=== PATIENT | female | born 1970 | race Caucasian/White ===

== ENCOUNTER → 2018-01-01 07:45 | Outpatient (CLI) | payer OTHER, SELFPAY ==
--- NOTE | 2018-01-01 | DI.MG.S_ITS ---
BILATERAL DIGITAL SCREENING MAMMOGRAM 3D/2D WITH CAD POST LUMPECTOMY: 01/01/2018 CLINICAL: Routine screening. Personal history of left breast cancer. Comparison is made to exams dated: 12/31/2016 mammogram - [facility], 06/11/2015 mammogram, and 12/11/2014 mammogram - [facility]. There are scattered fibroglandular elements in both breasts. Current study was also evaluated with a Computer Aided Detection (CAD) system. There are stable benign post operative findings in the left breast. No significant masses, calcifications, or other findings are seen in either breast. There has been no significant interval change. IMPRESSION: There is no mammographic evidence of malignancy. A 1 year screening mammogram is recommended. This exam was interpreted at Station ID: [id number]. NOTE: For mammograms, a report in lay terms will be sent to the patient. Approximately 15% of breast malignancies will not be visualized mammographically. In the management of a palpable breast mass, a negative mammogram must not discourage biopsy of a clinically suspicious lesion. Electronically Signed By: Jon hinds/jef:01/01/2018 15:30:42 letter sent: Normal Exam ACR BI-RADS Category 2: Benign Finding(s) 3342F
== END ==
PROVIDERS: PCP Nurse Practitioner Family; Visit Provider Nurse Practitioner Family
DX: Z12.31 Encounter for screening mammogram for malignant neoplasm of breast (principal); Z85.3 Personal history of malignant neoplasm of breast
CPT/HCPCS: 77063; 77067

== ENCOUNTER → 2019-02-08 17:16 | Outpatient (CLI) | payer OTHER, MEDICAID, SELFPAY ==
--- NOTE | 2019-02-08 | DI.MG.S_ITS ---
BILATERAL DIGITAL SCREENING MAMMOGRAM 3D/2D WITH CAD: 02/08/2019 CLINICAL: Routine screening. Personal history of left breast cancer. Comparison is made to exams dated: 01/01/2018 mammogram, 12/31/2016 mammogram - [facility], and 06/11/2015 mammogram - [facility]. There are scattered fibroglandular elements in both breasts. Current study was also evaluated with a Computer Aided Detection (CAD) system. There are benign calcifications in the right breast. There also are stable benign calcifications in the left breast. Additionally, there are benign post operative findings in the left breast. No significant masses, calcifications, or other findings are seen in either breast. There has been no significant interval change. IMPRESSION: There is no mammographic evidence of malignancy. A 1 year screening mammogram is recommended. This exam was interpreted at Station ID: [id number]. NOTE: For mammograms, a report in lay terms will be sent to the patient. Approximately 15% of breast malignancies will not be visualized mammographically. In the management of a palpable breast mass, a negative mammogram must not discourage biopsy of a clinically suspicious lesion. Electronically Signed By: Eliot edgar/jef:02/14/2019 11:48:55 letter sent: Normal Exam ACR BI-RADS Category 2: Benign Finding(s) 3342F
== END ==
PROVIDERS: PCP Nurse Practitioner Family; Visit Provider Nurse Practitioner Family
DX: Z12.31 Encounter for screening mammogram for malignant neoplasm of breast (principal); Z85.3 Personal history of malignant neoplasm of breast
CPT/HCPCS: 77063; 77067

== ENCOUNTER → 2020-03-09 17:21 | Outpatient (CLI) | payer OTHER, MEDICAID, SELFPAY ==
--- NOTE | 2020-03-09 17:23 | DI.MG.S_ITS ---
BILATERAL DIGITAL SCREENING MAMMOGRAM 3D/2D WITH CAD: 03/09/2020 CLINICAL: Routine screening. Personal history of left breast cancer. Comparison is made to exams dated: 02/08/2019 mammogram, 01/01/2018 mammogram, and 12/31/2016 mammogram - [facility]. There are scattered fibroglandular elements in both breasts. Current study was also evaluated with a Computer Aided Detection (CAD) system. There are benign calcifications in the right breast. There also are stable benign calcifications in the left breast. Additionally, there are benign post operative findings in the left breast. No significant masses, calcifications, or other findings are seen in either breast. There has been no significant interval change. IMPRESSION: BENIGN There is no mammographic evidence of malignancy. A 1 year screening mammogram is recommended. This exam was interpreted at Station ID: [id number]. NOTE: For mammograms, a report in lay terms will be sent to the patient. Approximately 15% of breast malignancies will not be visualized mammographically. In the management of a palpable breast mass, a negative mammogram must not discourage biopsy of a clinically suspicious lesion. Electronically Signed By: Eliot edgar/jef:03/12/2020 07:02:09 letter sent: Normal Exam ACR BI-RADS Category 2: Benign Finding(s) 3342F
== END ==
PROVIDERS: PCP Nurse Practitioner Family; Referring Provider Internal Medicine; Visit Provider Internal Medicine
DX: Z12.31 Encounter for screening mammogram for malignant neoplasm of breast (principal); Z85.3 Personal history of malignant neoplasm of breast
CPT/HCPCS: 77063; 77067

== ENCOUNTER → 2020-05-16 09:57 | Outpatient (CLI) | payer OTHER, MEDICAID, SELFPAY ==
[2020-05-16 11:03] LABS: COVID19 -Nasal RAPID Negative (Negative)
== END ==
PROVIDERS: PCP Nurse Practitioner Family; Visit Provider Physician Assistant
DX: Z01.812 Encounter for preprocedural laboratory examination (principal); Z20.822 Contact with and (suspected) exposure to COVID-19
CPT/HCPCS: 87635

== ENCOUNTER 2020-05-18 12:00 | Day surgery (SDC) | payer OTHER, MEDICAID, SELFPAY ==
--- NOTE | 2020-05-18 | PATH_ITS ---
[facility] Accession Number: [id number] . 01 Material submitted: . PART A: cecum - CECAL POLYP 3MM PART B: colon - TRANSVERSE COLON POLYP 2MM PART C: colon - DESCENDING COLON POLYP 2MM . 02 Diagnosis: A. Cecal Polyp 3 mm: Tubular adenoma. . B. Transverse Colon Polyp 2 mm: Portions of tubular adenoma x3. . C. Descending Colon Polyp 2 mm: Portion of hyperplastic polyp x1. Superficial portion of colorectal mucosa x1 with a benign lymphoid aggregate. MRV 05/24/2020 1312 Local . 02 Electronically signed: . Sarina Colon MD, Pathologist NPI- [id number] . 01 Gross description: . Part A: CECAL POLYP 3MM: Received in formalin is 1 fragment(s) of moody, soft tissue measuring 0.3 x 0.3 x 0.2 cm submitted entirely in 1 cassette(s) Part B: TRANSVERSE COLON POLYP 2MM: Received in formalin are 3 fragment(s) of moody, soft tissue measuring 0.1 x 0.1 x 0.1 cm to 0.4 x 0.2 x 0.2 cm submitted entirely in 1 cassette(s) Part C: DESCENDING COLON POLYP 2MM: Received in formalin are 2 fragment(s) of moody, soft tissue measuring 0.2 x 0.2 x 0.2 cm to 0.3 x 0.3 x 0.2 cm submitted entirely in 1 cassette(s) /KAMILA 05/22/20202034 Local . 02 Pathologist provided ICD-10: Z12.11, K63.5 . 02 CPT . 037543, 587956, 251046 Performed at: [address] [facility] [address], [place], [place] [id number] MD Jon Ruiz MD Phone: [phone] Performed at: 02 [facility] [address] [address] [place] [address] [place], [place] [id number] MD Nadya Guerrero MD Phone: [phone]
--- NOTE | 2020-05-18 11:39 | PM.HP.1 ---
History of Present Illness History of Present Illness Date Patient Seen: 05/18/20 Chief complaint: SDC Narrative: 49 year old female comes in today for consideration of a screening colonoscopy. There have been no lower GI symptoms suggesting disease such as change in bowel habits, bleeding, abdominal pain or anemia. There's been no family history of colon cancer or colon polyps. Overall health issues have been stable, including no major cardiac events for at least 6 weeks. 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, computer supplies (2 [employer]) Household Members: Spouse, daughter and grandson; Marvel Simpson, Sedrick, darell scherer 04/2016; Garland dog 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[employer], 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 Alcohol drinks/day: 0 >5/day in last 3 mos: no Caffeine use/day: 3 Type of Exercise: walk 30 minutes Exercise Times per Week: 4 Guns in home: no Dental Care w/in 6 mos.: no Sun Exposure: occasionally Fall Risk: no falls in past year Seat Belt Use: yes Smoking Status: never Passive Smoke Exposure: no Drug Use: no HIV High Risk Behavior: no Patient History Medical History (Updated 05/18/20 @ 11:51 by Wen Almodovar RN) Breast cancer, left (~2012) Anjana's disease (~2013) Hypertension Hypothyroidism Mixed hyperlipidemia Obesity Obesity (BMI 30.0-34.9) Prediabetes Surgical History (Updated 05/18/20 @ 11:51 by Wen Almodovar RN) H/O abdominal surgery (~2006) H/O abdominoplasty History of History of lumpectomy of left breast History of reduction mammoplasty Hx of partial thyroidectomy (~06/2014) Family & Social History Tobacco & Substance use: Smoking Status Never smoker Meds Home Medications and Allergies Home Medications Medication Instructions Recorded Confirmed Type levothyroxine 150 mcg PO DAILY 05/18/20 05/18/20 History olmesartan [Benicar] 10 mg PO DAILY 05/18/20 05/18/20 History Allergies Allergy/AdvReac Type Severity Reaction Status Date / Time No Known Drug Allergies Allergy Verified 05/18/20 12:10 Review of Systems Review of Systems ROS: Yes All systems reviewed with the patient and are negative except as otherwise documented Exam Narrative Exam Narrative: GENERAL: Alert and oriented, appearing stated age and in no acute distress. HEENT: Head normocephalic/atraumatic. Pupils equal, round, and reactive to light and accomodation. Extraocular muscles intact. Tympanic membranes clear. Nasal mucosa moist, septum midline. Oral mucosa moist, no lesions. Neck soft and supple, no lymphadenopathy. LUNGS: Clear to ausculation bilaterally, no wheezes, rhonchi or rales. CV: Normal S1 and S2 with regular rate and rhythm, no audible murmurs, rubs or gallops. ABDOMEN: Soft, non-tender, non-distended, no organomegaly. Positive bowel sounds. EXTREMITIES: No clubbing, cyanosis, or edema. NEURO: Cranial nerves II through XII grossly intact, no focal deficits. PSYCH: Alert and oriented x 3. SKIN: No concerning lesions. Assessment & Plan Assessment & Plan narrative: 1. Screening for colon cancer Plan for colonoscopy. The nature and character of the procedure as well as anticipated results were discussed. The possibility of not completing the procedure was also discussed. Possible complications including aspiration pneumonia, bleeding, perforation and reaction to medications either for sedation or preparation and missed lesions were discussed. Questions were answered and proceeding to the colonoscopy was elected. Informed consent signed. I sincerely appreciate the referral allowing me to participate in this patient's care. Please contact me with any questions or concerns.
--- NOTE | 2020-05-18 11:51 | P.OP.ENDO_ITS ---
Operative Date/Time/Diagnoses Date of procedure: 05/18/20 Procedure Notes SCOAP/Timeout: 13:09 Procedure in detail: ENDOSCOPIST: Laila Souza MD Sedation RN: Sariah Maria RN Sedation start time: 13:10 Sedation end time: 13:31 PROCEDURE: Colonoscopy with biopsy, cold INDICATIONS: 1. Screening for colon cancer MEDICATION: Levsin 0.125 mg sublingual, incremental doses of Versed and fentanyl until appropriate level sedation achieved. ASA CLASS: 2 CECAL WITHDRAWAL TIME: 9 minutes COMPLICATIONS: None. EXTENT OF PROCEDURE: Cecum. QUALITY OF PREP: Good with portions of liquid stool. PROCEDURE: Prior to insertion of the colonoscope, a digital rectal examination was accomplished with circumferential palpation of the distal rectal mucosa without significant findings being noted. The high-definition pediatric colonoscope was passed into the rectum in the usual fashion and advanced over to the cecum without difficulty. The ileocecal valve, appendiceal stoma, and medial wall all could be inspected and 3 mm polyp was seen and removed with cold biopsy forceps. ASCENDING COLON: As the colonoscope was withdrawn, care was taken to expose and inspect the haustral folds and no abnormalities were seen. HEPATIC FLEXURE: Normal, no polyps, diverticula or other abnormalities. TRANSVERSE COLON: 2 mm polyp removed with cold biopsy forceps, otherwise, no diverticula or other abnormalities. DESCENDING COLON: 2 mm polyp removed with cold biopsy forceps, otherwise, no diverticula or other abnormalities. SIGMOID COLON: Normal, no polyps, diverticula or other abnormalities. RECTUM: Normal. J maneuver was produced. There was no significant perianal disease. The J maneuver was broken. The remainder of the rectum was inspected and there was no external hemorrhoid disease. The scope was withdrawn. IMPRESSION: 1. Cecal polyp x1, 3 mm, removed with cold biopsy forceps 2. Transverse polyp x1, 2 mm, removed with cold biopsy forceps 3. Descending polyp x1, 2 mm, removed with cold biopsy forceps PLAN: 1. Follow-up in clinic status post pathology results. The possibility of a missed lesion including a malignancy has been discussed with the patient previously. Potential alarm symptoms have been discussed and s hould be reported immediately.
[2020-05-18 12:22] VITALS: BP 130/82; PULSE 83; RESP 16; TEMP 36.3; O2SAT 100; BMI 31.5
[2020-05-18] MEDS: HYOSCYAMINE 0.125 MG TABLET PO (12:28)
[2020-05-18] MEDS: LACTATED RINGERS 1,000 ML 200 ML IV (12:45)
[2020-05-18] MEDS: MIDAZOLAM 5 MG/5 ML VIAL IV (13:12)
[2020-05-18] MEDS: fentaNYL 250 MCG/5 ML INJ IV (13:19)
[2020-05-18 13:39] VITALS: BP 130/77; PULSE 15; RESP 94; TEMP 36.7
[2020-05-18 13:44] VITALS: BP 129/69; PULSE 82; RESP 15; O2SAT 95
[2020-05-18 13:49] VITALS: BP 125/74; PULSE 10; RESP 18; O2SAT 94
[2020-05-18 13:54] VITALS: BP 126/67; PULSE 72; RESP 19; O2SAT 92
== END 2020-05-18 14:20 | disposition home or self-care (01) ==
PROVIDERS: PCP Nurse Practitioner Family; Referring Provider Student in an Organized Health Care Education/Training Program; Visit Provider Student in an Organized Health Care Education/Training Program
PROC: 0DJD8ZZ Inspection of Lower Intestinal Tract, Via Natural or Artificial Opening Endoscopic (ICD-10-PCS; CPT 45378; principal; 2020-05-18 13:00)
DX: Z12.11 Encounter for screening for malignant neoplasm of colon (principal); E66.9 Obesity, unspecified; E03.9 Hypothyroidism, unspecified; I10 Essential (primary) hypertension; E78.5 Hyperlipidemia, unspecified; R73.03 Prediabetes; D12.0 Benign neoplasm of cecum; D12.3 Benign neoplasm of transverse colon
CPT/HCPCS: 45380; J2250; J3010

== ENCOUNTER → 2021-03-11 15:43 | Outpatient (CLI) | payer OTHER, MEDICAID, SELFPAY ==
--- NOTE | 2021-03-11 | DI.MG.S_ITS ---
BILATERAL DIGITAL SCREENING MAMMOGRAM 3D/2D WITH CAD: 03/11/2021 CLINICAL: Routine screening. Personal history of left breast cancer. Family history of breast cancer. Comparison is made to exams dated: 03/09/2020 mammogram, 02/08/2019 mammogram, and 01/01/2018 mammogram - [facility]. There are scattered fibroglandular elements in both breasts. Current study was also evaluated with a Computer Aided Detection (CAD) system. There are benign calcifications in the right breast. There also are stable benign calcifications in the left breast. Additionally, there are benign post operative findings in the left breast. No significant masses, calcifications, or other findings are seen in either breast. There has been no significant interval change. IMPRESSION: BENIGN There is no mammographic evidence of malignancy. A 1 year screening mammogram is recommended. This exam was interpreted at Station ID: [id number]. NOTE: For mammograms, a report in lay terms will be sent to the patient. Approximately 15% of breast malignancies will not be visualized mammographically. In the management of a palpable breast mass, a negative mammogram must not discourage biopsy of a clinically suspicious lesion. Electronically Signed By: Fady Kelly M.D., jr/jef:03/11/2021 15:59:30 letter sent: Normal Exam ACR BI-RADS Category 2: Benign Finding(s) 3342F
== END ==
PROVIDERS: PCP Nurse Practitioner Family; Referring Provider Internal Medicine; Visit Provider Internal Medicine
DX: Z12.31 Encounter for screening mammogram for malignant neoplasm of breast (principal); Z80.3 Family history of malignant neoplasm of breast; Z85.3 Personal history of malignant neoplasm of breast
CPT/HCPCS: 77063; 77067

== ENCOUNTER → 2022-03-25 11:35 | Outpatient (CLI) | payer OTHER, MEDICAID, SELFPAY ==
--- NOTE | 2022-03-25 | DI.MG.S_ITS ---
BILATERAL DIGITAL SCREENING MAMMOGRAM 3D/2D WITH CAD: 03/25/2022 CLINICAL: Routine screening. Personal history of left breast cancer. Family history of breast cancer. Comparison is made to exams dated: 03/11/2021 mammogram, 03/09/2020 mammogram, and 02/08/2019 mammogram - [facility]. There are scattered areas of fibroglandular density in both breasts (category b / 25%-50% glandular tissue). Current study was also evaluated with a Computer Aided Detection (CAD) system. There are benign calcifications in the right breast. There also are stable benign calcifications in the left breast. Additionally, there are benign post operative findings in the left breast. No significant masses, calcifications, or other findings are seen in either breast. There has been no significant interval change. IMPRESSION: BENIGN There is no mammographic evidence of malignancy. A 1 year screening mammogram is recommended. This exam was interpreted at Station ID: [id number]. NOTE: For mammograms, a report in lay terms will be sent to the patient. Approximately 15% of breast malignancies will not be visualized mammographically. In the management of a palpable breast mass, a negative mammogram must not discourage biopsy of a clinically suspicious lesion. Electronically Signed By: Crys meza/jef:03/25/2022 13:29:13 letter sent: Normal Exam ACR BI-RADS Category 2: Benign Finding(s) 3342F
== END ==
PROVIDERS: PCP Internal Medicine; Referring Provider Internal Medicine; Visit Provider Internal Medicine
DX: Z12.31 Encounter for screening mammogram for malignant neoplasm of breast (principal); Z85.3 Personal history of malignant neoplasm of breast; Z80.3 Family history of malignant neoplasm of breast
CPT/HCPCS: 77063; 77067

== ENCOUNTER → 2023-03-26 09:42 | Outpatient (CLI) | payer OTHER, MEDICAID, SELFPAY ==
--- NOTE | 2023-03-26 09:43 | DI.MG.S_ITS ---
BILATERAL DIGITAL SCREENING MAMMOGRAM 3D/2D WITH CAD: 03/26/2023 CLINICAL: Routine screening. Personal history of left breast cancer. Comparison is made to exams dated: 03/25/2022 mammogram, 03/11/2021 mammogram, and 03/09/2020 mammogram - [facility]. There are scattered areas of fibroglandular density in both breasts (category b / 25%-50% glandular tissue). Current study was also evaluated with a Computer Aided Detection (CAD) system. There are benign post operative findings in the left breast. No significant masses, calcifications, or other findings are seen in either breast. There has been no significant interval change. IMPRESSION: BENIGN There is no mammographic evidence of malignancy. A 1 year screening mammogram is recommended. This exam was interpreted at Station ID: [id number]. NOTE: For mammograms, a report in lay terms will be sent to the patient. Approximately 15% of breast malignancies will not be visualized mammographically. In the management of a palpable breast mass, a negative mammogram must not discourage biopsy of a clinically suspicious lesion. Electronically Signed By: Shraddha Navarro M.D., PH.D eb/penodalis:03/26/2023 15:12:44 letter sent: Normal Exam ACR BI-RADS Category 2: Benign Finding(s) 3342F
== END ==
PROVIDERS: PCP Internal Medicine; Referring Provider Internal Medicine; Visit Provider Internal Medicine
DX: Z12.31 Encounter for screening mammogram for malignant neoplasm of breast (principal); Z85.3 Personal history of malignant neoplasm of breast
CPT/HCPCS: 77063; 77067

== ENCOUNTER → 2023-11-04 15:33 | Outpatient (CLI) | payer OTHER, SELFPAY ==
--- NOTE | 2023-11-04 15:37 | DI.RAD.S_ITS ---
PROCEDURE: XR CERVICAL SPINE 2V OR 3V INDICATIONS: Other muscle spasm TECHNIQUE: 3 view(s) of the cervical spine were acquired. COMPARISON: None. FINDINGS: Bones: No fractures or dislocations to the C7 level. The lateral masses of C1 appear intact on the odontoid view. No suspicious bony lesions. There is straightening of cervical lordosis Soft tissues: No prevertebral soft tissue swelling. Clips are seen within the lower neck. IMPRESSION: 1. No acute fracture or subluxation. 2. There is straightening of cervical lordosis. This finding can be seen in patients with muscle spasms. Dictated by: Chencho Orellana M.D. on 11/05/2023 at 10:24 Approved by: Chencho Orellana M.D. on 11/05/2023 at 10:29
--- NOTE | 2023-11-04 15:37 | DI.RAD.S_ITS ---
PROCEDURE: XR SHOULDER LT MIN 2V INDICATIONS: Other muscle spasm TECHNIQUE: 3 views of the shoulder were acquired. COMPARISON: None. FINDINGS: Bones: No acute fractures or dislocations. No suspicious bony lesions. Visualized ribs appear intact. Mild osteoarthritis to the AC joint and glenohumeral joint. Soft tissues: No suspicious soft tissue calcifications. IMPRESSION: 1. No acute fracture or subluxation. 2. Mild osteoarthritis to the acromioclavicular joint and glenohumeral joint. Dictated by: Chencho Orellana M.D. on 11/05/2023 at 10:29 Approved by: Chencho Orellana M.D. on 11/05/2023 at 10:32
== END ==
LOC: RAD 15:35
PROVIDERS: PCP Internal Medicine; Referring Provider Internal Medicine; Visit Provider Internal Medicine
DX: M54.2 Cervicalgia (principal); M62.838 Other muscle spasm; M25.512 Pain in left shoulder; M19.012 Primary osteoarthritis, left shoulder
CPT/HCPCS: 72040; 73030

== ENCOUNTER → 2023-12-17 14:49 | Outpatient (CLI) | payer OTHER, SELFPAY | PROVIDERS: Family Provider Internal Medicine; PCP Internal Medicine; Referring Provider Internal Medicine; Visit Provider Internal Medicine | DX: M25.512 Pain in left shoulder (principal); M62.838 Other muscle spasm | CPT/HCPCS: 95885; 95886; 95911 ==

== ENCOUNTER → 2023-12-21 11:02 | Outpatient (CLI) | payer OTHER, SELFPAY ==
--- NOTE | 2023-12-21 11:04 | DI.CT.S_ITS ---
PROCEDURE: CT CHEST W CON INDICATIONS: PRIMARY HTN,NEUROGENIC THORACIC OUTLET SYNDROME TECHNIQUE: After the administration of intravenous contrast, 5 mm thick sections acquired from the pulmonary apices to the posterior costophrenic angles. 1 mm axial lung, 5 mm thick coronal and sagittal reformats and 7 mm axial MIP were acquired. For radiation dose reduction, the following was used: automated exposure control, adjustment of mA and/or kV according to patient size. COMPARISON: None. FINDINGS: Image quality: Diagnostic. Lower Neck: No enlarged lymph nodes. Thyroid: No thyroid nodules which require sonographic follow up, per consensus guidelines. Axillae: No enlarged lymph nodes. Chest Wall: Hand sing low-attenuation confluent mass measuring 5.8 x 3.1 cm in the left supraclavicular region on series 2, image 6. There is marked narrowing the subclavian vasculature traversing the midportion of the mass. In addition, a 3.7 x 2.1 cm soft tissue mass is present in the posterior left breast at the chest wall on series 2, image 40. Bones: Nonspecific sclerotic focus is present within the T8 vertebral body. No priors. Lungs and Pleura: Consolidative left lower opacification. Heart: Heart size is normal. No pericardial effusion. Thoracic Vessels: The aorta and pulmonary arteries demonstrate normal size. Mediastinum and Luzma: Heterogeneously enhancing anterior mediastinal/aortic pulmonary window mass measuring 5.8 x 5.5 cm. In addition, smaller enlarged masses are present in the paratracheal and subcarinal regions. Esophagus: No wall thickening. No hiatal hernia. Upper Abdomen: 1.7 x 1.4 cm left adrenal mass. IMPRESSION: Posterior left breast mass as above. Recommend follow-up with mammography as malignancy cannot be excluded. Subcarinal as well as mediastinal masses concerning for malignant adenopathy. Consolidative opacity is present in the left base. While this could be related to infection or inflammation, underlying malignancy given appearance of mediastinal/supraclavicular masses cannot be excluded. Adrenal mass. Given above findings, metastatic focus cannot be excluded. Dictated by: Dee Dee Chris M.D. on 12/21/2023 at 18:06 Approved by: Dee Dee Chris M.D. on 12/21/2023 at 18:12
[2023-12-21 11:50] LABS: Estimated Glomerular Filt Rate > 60 mL/min (>60)
== END ==
PROVIDERS: Radiology Diagnostic Radiology; Family Provider Internal Medicine; PCP Internal Medicine; Referring Provider Registered Nurse; Visit Provider Registered Nurse
DX: G54.0 Brachial plexus disorders (principal); N63.20 Unspecified lump in the left breast, unspecified quadrant; J98.59 Other diseases of mediastinum, not elsewhere classified; E27.9 Disorder of adrenal gland, unspecified
CPT/HCPCS: 36415; 71260; 82565; Q9967

== ENCOUNTER → 2023-12-23 15:10 | Outpatient (CLI) | payer OTHER, SELFPAY ==
--- NOTE | 2023-12-23 | DI.US.S_ITS ---
PROCEDURE: US SOFT TISSUE HEAD AND NECK INDICATIONS: CHEST MASS,NEOPLASM OF SUPRACLAVICULAR LYMPH NODES TECHNIQUE: Real-time scanning was performed of the neck region of interest, with image documentation. COMPARISON: None. FINDINGS/IMPRESSION: Left supraclavicular fossa masses measuring 3.5 x 3.2 x 3.1 centimeter along the medial, superficial region and 4.7 x 2.2 x 5.0 centimeter along the lateral, inferior margin. These are amenable to ultrasound guided biopsy. Dictated by: Joo Kwan M.D. on 12/23/2023 at 19:10 Approved by: Joo Kwan M.D. on 12/23/2023 at 19:12
== END ==
PROVIDERS: Family Provider Internal Medicine; PCP Internal Medicine; Referring Provider Internal Medicine; Visit Provider Internal Medicine
DX: D49.89 Neoplasm of unspecified behavior of other specified sites (principal); R22.2 Localized swelling, mass and lump, trunk
CPT/HCPCS: 76536

== ENCOUNTER → 2023-12-25 12:37 | Outpatient (CLI) | payer OTHER, SELFPAY ==
--- NOTE | 2023-12-25 12:38 | DI.US.S_ITS ---
PROCEDURE: US BIOPSY LYMPH NODE INDICATIONS: NEOPLASM SUPRACLAVICULAR LYMPH NODES/CHEST MASS TECHNIQUE: The indications, alternatives, benefits, risks, and complications of the procedure were explained to the patient. Written informed consent was obtained and placed in the chart. Real-time sonography was utilized to choose the site for percutaneous lymph node sampling. The skin was prepped and draped in the usual sterile fashion. 1% lidocaine was infiltrated down to the site of interest. A coaxial needle was then advanced into the site of interest under direct sonographic visualization. A biopsy apparatus was then utilized, and core biopsies were obtained. The needle was then withdrawn; a bandage was applied to the biopsy site. COMPARISON: [facility], , US SOFT TISSUE HEAD AND NECK, 12/23/2023, 15:21. FINDINGS: Biopsy site(s): Left supraclavicular Needle: HihoCoderno biopsy needle set. Number of passes: 4 Medications: 1% lidocaine for local anaesthesia. Complications: Patient developed a vasovagal response after the procedure with lightheadedness and dizziness. Patient was monitored, vital signs were taken which were within normal limits for the patient. Once patient was stable she was discharged home. Please refer to nursing documentation for further evaluation. IMPRESSION: Successful ultrasound-guided left supraclavicular lymph node biopsy, with pathology results pending. Dictated by: Demetrius Qureshi M.D. on 12/25/2023 at 15:31 Approved by: Demetrius Qureshi M.D. on 12/25/2023 at 15:33
--- NOTE | 2023-12-25 13:51 | PATH_ITS ---
[facility] Accession Number: [id number] No. of containers..01 Tissue . 01 Material submitted: . body - LEFT SUPRACLAVICULAR MASS . 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 Pending PDL-1 per clinician request. See comment. ----- Comment: Histologic examination of core biopsy shows largely necrotic specimen with sheet of malignant cells with pleomorphism, prominent nucleoli, and high mitotic activity, no lymphoid tissue identified. -- Immunohistochemical stains performed with appropriate controls show: The neoplastic cells are: Positive for: LAUREANO keratin, and cytokeratin 7 (subset of neoplastic cells). Negative for: CK20, breast markers (Mammaglobin, GCDFP15, and GATA3), neuroendocrine markers (chromogranin, synaptophysin (non-specific staining seen), and CD56), and lymphoid markers CD3, PAX-5 and CD20. Ki67 shows high proliferation rate >60%. -- Given the above positive and negative markers, the differential diagnosis for the primary origin includes but not limited to lung, thyroid, pancreatobiliary, endometrial/cervical, etc. -- Disclaimer: The necrotic nature of this biopsy might affect the immune stains interpretation and might cause false negative readings. -- Given the limited materials and the clinician interest in PDL-1 expression; we are going to send out the last 3 unstained slides for PDL-1 immune stain studies and will be reported in addendum. -- I discussed the above findings with Dr. Sepulveda in 12/29/2023 and in 01/04/2024 and recommend obtaining additional viable biopsy for histologic evaluation and his interest in NGS studies. -- Dr. Gross reviewed this case and agreed with the above findings. -- Technical Note: This test was developed, and the performance characteristics were validated by [employer]. It has not been cleared or approved by the Food and Drug Administration. FLN 01/04/2024 1329 Local . 01 Electronically signed: . Soham Hayward MD, Pathologist NPI- [id number] . 01 Gross description: . LEFT SUPRACLAVICULAR MASS: Received in formalin are 3 fragment(s) of moody, soft tissue measuring 0.7 x 0.1 x 0.1 cm to 1.2 x 0.1 x 0.1 cm submitted entirely in 1 cassette(s) /KAMILA 12/26/2023 0134 Local . 01 Pathologist provided ICD-10: C80.1 . 01 CPT . 928533, O68168, O33420 Performed at: [address] [facility] [id number] MD Jon Ruiz MD Phone: [phone]
[2023-12-25 14:06] VITALS: BP 136/82; PULSE 90; RESP 12; O2SAT 93
[2023-12-25 14:35] VITALS: BP 116/58; PULSE 91; RESP 14; O2SAT 96
== END ==
PROVIDERS: Family Provider Internal Medicine; PCP Internal Medicine; Referring Provider Internal Medicine; Visit Provider Internal Medicine
DX: C77.0 Secondary and unspecified malignant neoplasm of lymph nodes of head, face and neck (principal); C80.1 Malignant (primary) neoplasm, unspecified
CPT/HCPCS: 38505; 76942

== ENCOUNTER → 2025-02-28 15:05 | Outpatient (CLI) | payer OTHER, SELFPAY ==
[2025-02-28 15:44] LABS: Add Manual Diff / Slide Review NO; Hematocrit 36.8 % (36-46); Hemoglobin 12.3 g/dL (12.0-16.0); Lymphocytes Absolute Auto 1200 /uL (1100-4500); Mean Corpuscular HGB Conc 33.3 % (30-36); Mean Corpuscular Hemoglobin 25.9 PG (26-34); Mean Corpuscular Volume 77.7 fL (80-100); Platelet Count 295 X10^3/uL (150-400)
== END ==
PROVIDERS: Family Provider Internal Medicine; PCP Registered Nurse; Referring Provider Surgery; Visit Provider Surgery
DX: K80.00 Calculus of gallbladder with acute cholecystitis without obstruction (principal)
CPT/HCPCS: 85025

== ENCOUNTER 2025-03-01 10:08 | Day surgery (SDC) | payer OTHER, SELFPAY ==
[2025-02-23 13:11] VITALS: BMI 23.9
--- NOTE | 2025-03-01 | PATH_ITS ---
[facility] Accession Number: [id number] No. of containers..01 Tissue . 01 Material submitted: . gallbladder - GALLBLADDER . 01 Diagnosis: GALLBLADDER, CHOLECYSTECTOMY: Mild chronic calculous cholecystitis with reactive changes. Negative for dysplasia or malignancy. MRV 03/03/2025 1448 Local . 01 Electronically signed: . Waldo Gross MD, Pathologist NPI- [id number] . 01 Gross description: . Received in formalin with two patient identifiers, and gallbladder is a 9.5 x 2.8 x 2.5 cm intact gallbladder. The stapled cystic duct margin is inked black. The serosa is purple-moody with scattered pinpoint hemorrhage. The mucosa is moody-brown, attenuated and trabeculated with a 0.2 cm thick wall. The lumen contains yellow-green mucinous fluid. There are multiple brown multifaceted calculi up to 1.5 cm obstructing the cystic duct. Lymph nodes are not grossly identified. Bell Tier sections with cystic duct margin en face and gallbladder wall are submitted in A1. ([id number]) /MRV 03/02/2025 1911 Local . 01 Pathologist provided ICD-10: K80.10, K80.00 . 01 CPT . 196053 Specimen Comment: A courtesy copy of this report has been sent to [facility] Performed at: [address] [address] [address], [place], [place] [id number] MD Jon Ruiz MD Phone: [phone]
--- NOTE | 2025-03-01 07:26 | PM.PREOP ---
Pre-operative Note Interval Note History & Physical reviewed/Exam performed by Physician: Yes Changes to H&P: No ASA Class (for procedural sedation): II
--- NOTE | 2025-03-01 07:29 | P.HP_ITS ---
History of Present Illness History of Present Illness Date Patient Seen: 03/01/25 Chief complaint: NDC Narrative: 54yo F, presents for jean carlos grossman today. See office visit. [facility] Medical History (Updated 02/23/25 @ 13:14 by Leah Joe RN) Anesthesia complication Anjana's disease (~2013) Breast cancer, left (~2012) Obesity (BMI 30.0-34.9) Obesity Hypothyroidism Hypertension Prediabetes Mixed hyperlipidemia Surgical History (Updated 10/12/20 @ 11:12 by Ramirez Cash) Hx of partial thyroidectomy (~06/2014) History of lumpectomy of left breast History of H/O abdominal surgery (~2006) H/O abdominoplasty History of reduction mammoplasty Social History (System 10/12/20 @ 11:12 by Ramirez Cash) household members: spouse alcohol intake: never Meds Home Medications and Allergies Home Medications ?Medication ?Instructions ?Recorded ?Confirmed ?Type levothyroxine 150 mcg tablet 150 mcg PO DAILY 05/18/20 05/18/20 History olmesartan 20 mg tablet (Benicar) 10 mg PO DAILY 05/1805/18/20 History Allergies Allergy/AdvReac Type Severity Reaction Status Date / Time No Known Drug Allergies Allergy Verified 10/12/20 11:12 Exam Narrative Exam Narrative: Const General: healthy appearing, comfortable and no acute distress Orientation: alert and oriented x3 HENMT Ears: hearing grossly normal bilaterally Eyes Visual Segundo: normal visual segundo by confrontation Conjunctivae: conjunctivae normal Sclera: sclerae normal EOM: EOM intact bilaterally Resp Effort & Inspection: normal respiratory effort and able to speak in complete sentences Cardio Rate: regular rate GI Palpation: soft (NT) Extrem General: no pedal edema and no calf tenderness Assessment & Plan Assessment and plan (1) Calculous cholecystitis: Qualifiers: Cholecystitis acuity: acute Biliary obstruction: without biliary obstruction Qualified Code(s): K80.00 - Calculus of gallbladder with acute cholecystitis without obstruction Status: Acute Plan Plan laparoscopic cholecystectomy with cholangiogram. The risks, benefits and options regarding the procedure were explained to the patient in detail. Risk discussion included but not limited to: open incision, bleeding, infection, bile duct injury, bile leak, abscess, drain, need for ERCP, retained stone. The patient was encouraged to ask questions and they were answered to their satisfaction. The patient understands and is agreeable to proceed. Time-Based Coding :: [TOTAL MINUTES] spent with patient and on the chart (including review of chart, obtaining history, exam, reviewing outside data, placing orders, documenting exam and treatment plan, and counseling patient) on [DATE]. [employer] Document charge(s): Yes Charge Codes Inpatient/observation care including admit and discharge same day: 20919
[2025-03-01 10:52] VITALS: BP 113/77; PULSE 80; RESP 16; TEMP 36.7; O2SAT 99
[2025-03-01] MEDS: LACTATED RINGERS 1,000 ML 42 ML IV ×2 (11:04→13:35)
--- NOTE | 2025-03-01 12:58 | SUR.OPER ---
Supine on padded OR bed, head on pillow, arms padded and tucked at sides, legs uncrossed, safety belt at thigh, tape over blanket over lower legs . Final positioning done by provider
--- NOTE | 2025-03-01 13:00 | DI.RAD.S_ITS ---
PROCEDURE: XR CHOLANGIOGRAM OPERATIVE INDICATIONS: IOC COMPARISON: [facility], US, US ABDOMEN LIMITED, 02/02/2025, 14:32. [facility], CT, CT ABDOMEN PELVIS WITH CONTRAST, 02/02/2025, 11:10. FINDINGS: Biliary ducts: The surgeon injected contrast into the biliary ducts after cannulation of the cystic duct stump. Visualized intra- and extrahepatic bile ducts are normal in caliber, without strictures. No intraluminal filling defects to suggest retained ductal stones or sludge. No evidence for iatrogenic ductal injury. Duodenum: Contrast flows promptly through the sphincter of Oddi into the duodenum, which appears normal in caliber. IMPRESSION: Intraoperative cholangiogram as above. Dictated by: Dee Dee Chris M.D. on 03/02/2025 at 15:40 Approved by: Dee Dee Chris M.D. on 03/02/2025 at 15:41
[2025-03-01] MEDS: BUPivacaine 0.25% W/ EPI (PF) 30 ML VIAL 60 ML INJ (13:12)
--- NOTE | 2025-03-01 13:59 | PM.OP.1 ---
Operative Date/Time/Diagnoses Date of procedure: 03/01/25 Time of procedure: 13:59 Pre-op diagnosis: Calculous cholecystitis Post-op diagnosis: same Procedure & Clinicians Procedure: Laparoscopic cholecystectomy with intraoperative cholangiogram Same procedure(s) as scheduled: Yes Indications: 54yo F, symptomatic cholelithiasis Surgeon: Poncho Blanc Assisted?: Yes Technical Marketing Consultant: Calixto Sargent Anesthesia Type: General Operative Notes Findings: Chronic cholecystitis, gallbladder full of stones, normal cholangiogram, elongated infundibulum Closure Type: primary Specimen(s): other (gallbladder) Applied: none Estimated Blood Loss (mL): 10 Blood products transfused: none Procedure in detail: After informed consent and satisfactory general endotracheal anesthesia, the abdomen was prepped and draped in the usual sterile manner.? The patient received appropriate preoperative antibiotics and DVT prophylaxis.? Surgical time-out was performed with all team members in agreement.? The pneumoperitoneum was established under direct vision using the Nesbitt direct trocar cutdown technique.? An 0 Vicryl [id number] suture was placed on the umbilical fascia.? The 10 mm 30 degree lens was inserted and no trauma secondary to the trocar insertion was noted.? We performed bilateral laparoscopic TAP blocks using 25 cc of 0.25% Marcaine with epinephrine.? The additional 10 cc of local was used in the skin and subcutaneous tissues at the incision sites for a total of 60 cc of local.? The patient was placed in reverse Trendelenburg, [id number] position.? The fundus of the gallbladder was grasped and retracted over the liver.? The infundibulum was retracted laterally for proper exposure of the cystic duct and artery.? Critical view of safety was achieved with 2 distinct structures entering the gallbladder and segment 5 of the liver posterior.? Infundibulum was elongated. A cholangiogram was performed using a yellow ureteral catheter through the Marino clamp.? The cystic duct and cystic artery were skeletonized with hook cautery.? A clip was placed on the cystic duct next to the gallbladder.? A ductotomy was made with laparoscopic Metzenbaum scissors.? The cholangiogram was normal.? It demonstrated normal caliber right and left hepatic ducts, common hepatic duct and common bile duct without filling defect, mass or stricture.? The contrast flowed unobstructed into the duodenum.? The cholangiogram catheter was removed and the cystic duct was doubly clipped and divided.? The cystic artery was similarly skeletonized, doubly clipped and divided with laparoscopic Metzenbaum scissors.? The adhesions between the gallbladder and the liver were divided with hook cautery.? The gallbladder was placed into an endo-pouch and removed.? The gallbladder bed and clips were inspected and no bleeding or bile drainage was noted.? The trocars were removed and there was no bleeding noted at the trocar sites.? The 0 Vicryl izjmoa-ly-vqqdd suture was tied and there were no palpable fascial defects.? The skin incisions were closed using 4-0 Monocryl in a subcuticular manner.? Dermabond glue was applied as a final dressing.? The estimated blood loss was minimal.? The instrument sponge and needle counts were all correct x2.? The patient tolerated the procedure well and was extubated in the operating room and transported to the recovery area in stable condition. Complications: none Post-operative Condition: stable Disposition: PACU Plan for aftercare: PACU then home
[2025-03-01 14:15] VITALS: BP 161/91; PULSE 98; RESP 18; TEMP 36.6; O2SAT 100
[2025-03-01 14:26] VITALS: BP 160/86; PULSE 97; RESP 20; TEMP 36.6; O2SAT 95
[2025-03-01] MEDS: ONDANSETRON 4 MG/2 ML INJ IV (15:08)
== END 2025-03-01 15:35 | disposition home or self-care (01) ==
PROVIDERS: Family Provider Internal Medicine; PCP Registered Nurse; Referring Provider Surgery; Visit Provider Surgery
PROC: 0FT44ZZ Resection of Gallbladder, Percutaneous Endoscopic Approach (ICD-10-PCS; CPT 47563; principal; 2025-03-01 11:45)
DX: K80.10 Calculus of gallbladder with chronic cholecystitis without obstruction (principal)
CPT/HCPCS: 47563; 74300; S2900; J0689; J1100; J1885; J2405; J2704; J3010; J7120